=== PATIENT | male | born 1950 | race Hispanic/Latino ===

== ENCOUNTER → 2017-10-20 | Outpatient (CLI) | payer MEDICARE ==
[~2017-10-20] MED LIST: AEC81 PO; ALLO300T2 PO; CLOP75TA32 PO; DAPA10TA PO; EZET10 PO; FENO145T37 PO; INSLAN SQ; METO100T14 PO; METO50TA18 PO; RANI150T7 PO; SIMV20TA6 PO; SITA100T12 PO
== END | disposition home or self-care (01) ==
LOC: SHCH 14:02
PROVIDERS: ATTEND Internal Medicine Cardiovascular Disease
DX: I65.23 Occlusion and stenosis of bilateral carotid arteries (principal); I73.9 Peripheral vascular disease, unspecified; R09.89 Other specified symptoms and signs involving the circulatory and respiratory systems
CPT/HCPCS: 93880; 93925

== ENCOUNTER → 2017-11-08 | Outpatient (CLI) | payer MEDICARE ==
[~2017-11-08] VITALS: Ht 172.7 cm; Wt 108.0 kg
[~2017-11-08] MED LIST changes: +REGADENOSON 0.4 MG/5 ML PF SYG IVP SCH
== END | disposition home or self-care (01) ==
LOC: SHCH 08:22
PROVIDERS: ATTEND Internal Medicine Cardiovascular Disease
DX: I25.10 Atherosclerotic heart disease of native coronary artery without angina pectoris (principal); I25.2 Old myocardial infarction; Z95.5 Presence of coronary angioplasty implant and graft
CPT/HCPCS: 78452; 93017; 96374; A9500 ×2; J2785

== ENCOUNTER → 2018-12-27 | Outpatient (CLI) | payer MEDICARE ==
[~2018-12-27] MED LIST changes: -DAPA10TA PO; -FENO145T37 PO; +FURO40TA7 PO; +HYDR500C2 PO; +ISOS30TA11 PO; +METF-445 PO; -METO100T14 PO; -METO50TA18 PO; -REGADENOSON 0.4 MG/5 ML PF SYG IVP SCH; -SITA100T12 PO; +VALS40TA11 PO
== END | disposition home or self-care (01) ==
LOC: SHCH 14:38
PROVIDERS: ATTEND Internal Medicine Cardiovascular Disease
DX: I87.2 Venous insufficiency (chronic) (peripheral) (principal); R60.9 Edema, unspecified
CPT/HCPCS: 93970

== ENCOUNTER 2019-02-10 19:17 | Emergency (ER) | payer MEDICARE ==
[2019-02-10] MEDS ORDERED: ASPIRIN 325 MG TABLET ONE (19:58)
[2019-02-10 20:12] LABS: CREATININE 1.4 mg/dL (0.5-1.5); INR 1.05 (0.85-1.15); PARTIAL THROMBOPLASTIN TIME 27.5 SEC (26.3-35.5); POTASSIUM 5.3 mmol/L (3.5-5.1)
[2019-02-10 20:19] LABS: B-TYPE NATRIURETIC PEPTIDE 646 pg/mL (0-100)
[2019-02-10 20:23] LABS: BASOPHILS % (AUTO) 0.8 % (0.0-5.0); EOSINOPHILS % (AUTO) 0.6 % (0.0-8.0); LYMPHOCYTES % (AUTO) 25.7 % (21.0-51.0); MEAN CORPUSCULAR HEMOGLOBIN 34.3 pg (27.0-33.0); MEAN CORPUSCULAR VOLUME 103.8 fL (79-99); MONOCYTES % (AUTO) 10.2 % (3.0-13.0); NEUTROPHILS % (AUTO) 62.7 % (40.0-77.0); NUCLEATED RED BLOOD CELLS 0.1 % (0.0-0.19); PLATELET COUNT (AUTO) 120 K/uL (130-400); RED BLOOD CELL COUNT(AUTO) 4.81 MIL/uL (4.50-6.20); RED CELL DISTRIBUTION WIDTH 17.9 % (11.0-15.5); WHITE BLOOD COUNT (AUTO) 4.7 K/uL (4.8-10.8)
[2019-02-10] MEDS ORDERED: ONDANSETRON HCL 4 MG/2 ML VIAL ONE (20:31)
[2019-02-10] MEDS ORDERED: FAMOTIDINE/PF 20 MG/2 ML VIAL IV ONE (20:31)
[2019-02-10] MEDS ORDERED: ACETAMINOPHEN 325 MG TAB ONE (20:32)
[2019-02-10 20:38] LABS: ALBUMIN 3.7 g/dL (3.5-5.0); BILIRUBIN,TOTAL 1.1 mg/dL (0.2-1.0); TOTAL PROTEIN, SERUM 8.3 g/dL (6.0-8.3)
== END 2019-02-10 23:30 | disposition home or self-care (01) ==
LOC: EDH 19:17
DX: R11.2 Nausea with vomiting, unspecified (principal); R10.13 Epigastric pain; I11.0 Hypertensive heart disease with heart failure; I50.9 Heart failure, unspecified; E11.9 Type 2 diabetes mellitus without complications; E78.5 Hyperlipidemia, unspecified; Z87.891 Personal history of nicotine dependence; Z79.899 Other long term (current) drug therapy
CPT/HCPCS: 36415; 71045; 76705; 80053; 82550; 83874; 83880; 84484 ×2; 85025; 85610; 85730; 93005 ×2; 96374; 96375; 99285; J2405; J3490

== ENCOUNTER → 2019-06-22 | Outpatient (CLI) | payer MEDICARE ==
[~2019-06-22] MED LIST changes: -EZET10 PO; +EZET10TA13 PO; +SIMV-43 PO; -SIMV20TA6 PO
== END | disposition home or self-care (01) ==
LOC: SHCH 09:50
PROVIDERS: ATTEND Internal Medicine Cardiovascular Disease
DX: I08.1 Rheumatic disorders of both mitral and tricuspid valves (principal); I25.5 Ischemic cardiomyopathy
CPT/HCPCS: 93306

== ENCOUNTER 2020-01-19 11:52 | Inpatient (IN) | payer MEDICARE ==
[~2020-01-19] VITALS: Ht 162.6 cm; Wt 111.1 kg
[2020-01-19 12:28] LABS: BASOPHILS % (AUTO) 0.2 % (0.0-5.0); EOSINOPHILS % (AUTO) 0.2 % (0.0-8.0); HEMATOCRIT 45.9 % (42-54); LYMPHOCYTES % (AUTO) 4.7 % (21.0-51.0); MEAN CORPUSCULAR HEMOGLOBIN 36.7 pg (27.0-33.0); MEAN CORPUSCULAR HGB CONC 35.3 g/dL (32.0-36.0); MEAN CORPUSCULAR VOLUME 104.1 fL (79-99); MONOCYTES % (AUTO) 4.2 % (3.0-13.0); NEUTROPHILS % (AUTO) 90.4 % (40.0-77.0); PLATELET COUNT (AUTO) 97 K/uL (130-400); RED BLOOD CELL COUNT(AUTO) 4.41 MIL/uL (4.50-6.20); RED CELL DISTRIBUTION WIDTH 13.1 % (11.0-15.5); WHITE BLOOD COUNT (AUTO) 6.4 K/uL (4.8-10.8)
[2020-01-19 12:31] LABS: APPEARANCE,URINE Clear (CLEAR); BILIRUBIN,URINE Small (NEGATIVE); COLOR,URINE Dark Yellow (YELLOW); GLUCOSE, URINE (UA) Negative (NEGATIVE); KETONES,URINE Trace mg/dL (NEGATIVE); LEUKOCYTE ESTERASE ,URINE Trace (NEGATIVE); NITRATE,URINE Negative (NEGATIVE); OCCULT BLOOD,URINE Large (NEGATIVE); PH,URINE 5.5 (5.0-8.0); PROTEIN,URINE >=1000 mg/dL (NEGATIVE)
[2020-01-19 12:41] LABS: POTASSIUM 3.5 mmol/L (3.5-5.1)
[2020-01-19 12:53] LABS: ALBUMIN 3.3 g/dL (3.5-5.0); CREATININE 1.7 mg/dL (0.5-1.5); TOTAL PROTEIN, SERUM 7.6 g/dL (6.0-8.3)
[2020-01-19 12:55] LABS: BACTERIA,URINE Few /HPF (None Seen); SQUAMOUS EPITHELIAL CELL,UR Few /HPF (0-2); WBC,URINE 0-1 /HPF (0-1); YEAST,URINE BUDDING Rare /HPF (None Seen)
[2020-01-19] MEDS ORDERED: POTASSIUM CHLORIDE 20 MEQ ERTAB PO ONE (13:46)
[2020-01-19] MEDS ORDERED: FUROSEMIDE 10 MG/ML 4ML VIAL ONE ×2 (13:46→17:34)
[2020-01-19] MEDS ORDERED: AZITHROMYCIN 500MG+NS 250ML 250 ML IV ONE (16:21)
[2020-01-19] MEDS ORDERED: CEFTRIAXONE SODIUM 1 GM ONE (16:22)
[2020-01-19] MEDS ORDERED: ACETAMINOPHEN 325 MG TAB ONE (16:22)
[2020-01-19 16:33] LABS: ABG HCO3 12.5 mmol/L (21.0-28.0); ABG OXYGEN SATURATION 98.9 % (95.0-99.0); ABG PCO2 25 mmHg (35-48)
[2020-01-19] MEDS ORDERED: METHYLPREDNISOLONE SOD SUCC 125MG/2ML VIAL ONE (16:39)
[2020-01-19] MEDS ORDERED: MORPHINE SULFATE 2 MG/ML 1ML SYG ONE (16:48)
[2020-01-19] MEDS: METHYLPREDNISOLONE SOD SUCC 125MG/2ML VIAL IVP SCH (17:00)
[2020-01-19] MEDS ORDERED: LACTATED RINGERS 1000ML 1,000 ML IV SCH (17:00)
[2020-01-19] MEDS ORDERED: LORAZEPAM 2 MG/ML 1 ML VIAL IVP PRN (17:00)
[2020-01-19] MEDS: FAMOTIDINE/PF 20 MG/2 ML VIAL IV SCH (17:00)
[2020-01-19] MEDS ORDERED: MORPHINE SULFATE 2 MG/ML 1ML SYG IVP PRN (17:00)
[2020-01-19] MEDS ORDERED: LORAZEPAM 2 MG/ML 1 ML VIAL ONE (17:08)
[2020-01-19] MEDS: CEFTRIAXONE SODIUM 1 GM IVP SCH (17:30)
[2020-01-19] MEDS ORDERED: DOXYCYCLINE 100MG+NS 250ML IV SCH (17:30)
[2020-01-19] MEDS ORDERED: NITROGLYCERIN 50 MG/D5% WATER 1 BOT ONE (17:34)
[2020-01-19] MEDS: DOXYCYCLINE 100MG+NS 250ML 250 ML IV SCH (18:00)
[2020-01-19] MEDS ORDERED: PROPOFOL 1000 MG/100 ML 100 ML IV ONE (18:21)
[2020-01-19] MEDS ORDERED: ACETAMINOPHEN 650 MG SUPPOSITORY RC ONE (18:52)
[2020-01-19 19:00] LABS: ABG HCO3 17.6 mmol/L (21.0-28.0); ABG OXYGEN SATURATION 90.5 % (95.0-99.0); ABG PCO2 55 mmHg (35-48)
[2020-01-19] MEDS ORDERED: DEXTROSE 50%-WATER 50 ML DISP.SYRIN IV ONE (20:43)
[2020-01-19] MEDS ORDERED: SODIUM BICARB 50MEQ 50ML VIAL ONE ×2 (20:43→22:19)
[2020-01-19] MEDS ORDERED: FUROSEMIDE 10 MG/ML 4ML VIAL IV SCH (21:00)
[2020-01-19 21:16] LABS: ABG BASE EXCESS -10.8 mmol/L (-2.0-3.0); ABG OXYGEN SATURATION 91.7 % (95.0-99.0); ABG PCO2 59 mmHg (35-48)
[2020-01-19] MEDS ORDERED: FENTANYL 1000MCG+NS 100ML 100 ML ONE (21:54)
[2020-01-19] MEDS ORDERED: NOREPINEPHRINE 4MG/NS 250ML 250 ML IV ONE (22:19)
[2020-01-19] MEDS ORDERED: ONDANSETRON HCL 4 MG/2 ML VIAL IVP PRN ×2 (22:30)
[2020-01-19] MEDS ORDERED: HYDRALAZINE HCL 20 MG/ML VIAL IV PRN ×2 (22:30)
[2020-01-19] MEDS ORDERED: DEXTROSE 50%-WATER 50 ML DISP.SYRIN IV PRN ×2 (22:30)
[2020-01-19] MEDS ORDERED: GLUCAGON 1MG KIT 1 MG ML IM PRN ×2 (22:30)
[2020-01-19] MEDS ORDERED: ACETAMINOPHEN 325 MG SUPPOSITORY RC PRN ×2 (22:30)
[2020-01-19] MEDS ORDERED: MIDAZOLAM HCL 50 MG in SODIUM CHLORIDE 0.9% 50 ML IV SCH (22:45)
[2020-01-19] MEDS ORDERED: NOREPINEPHRINE 4MG/NS 250ML IV SCH (22:45)
[2020-01-19 23:00] LABS: BASOPHILS % (AUTO) 0.2 % (0.0-5.0); EOSINOPHILS % (AUTO) 0.2 % (0.0-8.0); HEMATOCRIT 58.3 % (42-54); LYMPHOCYTES % (AUTO) 7.7 % (21.0-51.0); MEAN CORPUSCULAR HEMOGLOBIN 37.1 pg (27.0-33.0); MEAN CORPUSCULAR HGB CONC 32.9 g/dL (32.0-36.0); MEAN CORPUSCULAR VOLUME 112.5 fL (79-99); MONOCYTES % (AUTO) 2.9 % (3.0-13.0); NEUTROPHILS % (AUTO) 87.8 % (40.0-77.0); NUCLEATED RED BLOOD CELLS 0.2 % (0.0-0.19); PLATELET COUNT (AUTO) 55 K/uL (130-400); RED BLOOD CELL COUNT(AUTO) 5.18 MIL/uL (4.50-6.20); RED CELL DISTRIBUTION WIDTH 13.8 % (11.0-15.5); WHITE BLOOD COUNT (AUTO) 13.3 K/uL (4.8-10.8)
[2020-01-19] MEDS: SODIUM BICARB 8.4% 50ML SYRINGE IVP SCH (23:00)
[2020-01-19] MEDS ORDERED: DEXMEDETOMIDINE HCL 200 MCG in SODIUM CHLORIDE 0.9% 50 ML IV SCH (23:00)
[2020-01-19 23:04] LABS: CREATININE 3.3 mg/dL (0.5-1.5); POTASSIUM 4.4 mmol/L (3.5-5.1)
[2020-01-19 23:16] LABS: ALBUMIN 2.9 g/dL (3.5-5.0); BILIRUBIN,TOTAL 2.8 mg/dL (0.2-1.0); CRP QUANTITATIVE 130.8 mg/L (0.00-9.0); MAGNESIUM 2.7 mg/dL (1.80-2.40); TOTAL PROTEIN, SERUM 7.8 g/dL (6.0-8.3)
[2020-01-20] VITALS (57 sets, daily range): BP systolic 68–172; BP diastolic 45–99
[2020-01-20 00:46] LABS: PLATELET MORPHOLOGY COMMENT DECREASED
[2020-01-20] MEDS: METHYLPREDNISOLONE SOD SUCC 125MG/2ML VIAL IVP SCH ×3 (01:00→18:23)
[2020-01-20] MEDS ORDERED: METHYLPREDNISOLONE SOD SUCC 125MG/2ML VIAL ONE (01:15)
[2020-01-20] MEDS ORDERED: FUROSEMIDE 10 MG/ML 4ML VIAL ONE (01:15)
[2020-01-20] MEDS ORDERED: POTASSIUM CHLORIDE 20 MEQ ERTAB PO PRN ×3 (01:30→06:15)
[2020-01-20] MEDS ORDERED: POTASSIUM CHLORIDE 10% ELIXIR 20 MEQ/15 ML UDCUP PO PRN ×3 (01:30→06:15)
[2020-01-20] MEDS ORDERED: POTASSIUM CHLORIDE 20MEQ/100ML 100 ML IV PRN ×3 (01:30→06:15)
[2020-01-20] MEDS ORDERED: LIDOCAINE HCL-MPF 1% 2ML VIAL IJ PRN ×3 (01:30→06:15)
--- NOTE | 2020-01-20 02:15 | NUR ---
Patient transferred to ICU. ER nurse given report to ICU nurse. Respiratory Therapist arrived with ER nurse. VSS. Will continue to monitor.
[2020-01-20] MEDS: CEFTRIAXONE SODIUM 1 GM IVP SCH (05:15)
[2020-01-20] MEDS: DOXYCYCLINE 100MG+NS 250ML 250 ML IV SCH ×4 (06:00→22:28)
[2020-01-20] MEDS ORDERED: MAGNESIUM 2GM PREMIX 50ML 50 ML IV SCH (06:15)
[2020-01-20] MEDS: INSULIN HUMULIN R 100 UNIT/ML 3ML SQ SCH ×4 (06:45→21:00)
[2020-01-20 06:56] LABS: BASOPHILS % (AUTO) 0.4 % (0.0-5.0); EOSINOPHILS % (AUTO) 0.4 % (0.0-8.0); HEMATOCRIT 54.8 % (42-54); LYMPHOCYTES % (AUTO) 1.6 % (21.0-51.0); MEAN CORPUSCULAR HEMOGLOBIN 36.2 pg (27.0-33.0); MEAN CORPUSCULAR HGB CONC 33.4 g/dL (32.0-36.0); MEAN CORPUSCULAR VOLUME 108.3 fL (79-99); NEUTROPHILS % (AUTO) 87.8 % (40.0-77.0); NUCLEATED RED BLOOD CELLS 0.2 % (0.0-0.19); PLATELET COUNT (AUTO) 47 K/uL (130-400); RED BLOOD CELL COUNT(AUTO) 5.06 MIL/uL (4.50-6.20); RED CELL DISTRIBUTION WIDTH 14.1 % (11.0-15.5); WHITE BLOOD COUNT (AUTO) 18.2 K/uL (4.8-10.8)
[2020-01-20 07:24] LABS: B-TYPE NATRIURETIC PEPTIDE 1750 pg/mL (0-100)
[2020-01-20 07:26] LABS: ALBUMIN 2.8 g/dL (3.5-5.0); BILIRUBIN,TOTAL 2.7 mg/dL (0.2-1.0); CREATININE 3.7 mg/dL (0.5-1.5); CRP QUANTITATIVE 162.8 mg/L (0.00-9.0); POTASSIUM 3.9 mmol/L (3.5-5.1); TOTAL PROTEIN, SERUM 6.9 g/dL (6.0-8.3)
[2020-01-20] MEDS ORDERED: SODIUM CHLORIDE 0.9% 1000ML 1,000 ML IV ONE (07:54)
[2020-01-20] MEDS ORDERED: MAGNESIUM 4GM PREMIX 100ML 100 ML IV SCH (07:56)
[2020-01-20] MEDS ORDERED: AMIODARONE HCL 150 MG in DEXTROSE 5%-WATER 100 ML IV SCH (07:56)
[2020-01-20] MEDS ORDERED: AMIODARONE HCL 450 MG in DEXTROSE 5%-WATER 250 ML IV SCH (07:56)
[2020-01-20] MEDS ORDERED: AMIODARONE HCL 360 MG in DEXTROSE 5%-WATER 200 ML IV SCH (08:15)
[2020-01-20] MEDS ORDERED: VANCOMYCIN PROTOCOL PER PHARMACY IV SCH (08:30)
[2020-01-20] MEDS ORDERED: NOREPINEPHRINE BITARTRATE 1 MG/1 ML ML IV ONE (08:43)
[2020-01-20] MEDS ORDERED: COMPOUND IV REFRIGERATED 1 EACH IVSOLN MISC PRN (08:45)
[2020-01-20] MEDS ORDERED: ENOXAPARIN SODIUM 60 MG/0.6 ML SQ SCH (09:00)
[2020-01-20] MEDS ORDERED: SODIUM BICARB 50MEQ 50ML VIAL ONE (09:09)
[2020-01-20] MEDS: SODIUM BICARB 50MEQ 50ML VIAL IV SCH ×2 (09:15→10:43)
[2020-01-20] MEDS: CALCIUM CHLORIDE 100 MG/ML 10 ML SYG IVP SCH ×2 (09:17→10:43)
[2020-01-20] MEDS: VASOPRESSIN 20 UNITS in SODIUM CHLORIDE 0.9% 100 ML IV SCH (09:19)
[2020-01-20 10:02] LABS: ABG HCO3 20.2 mmol/L (21.0-28.0); ABG OXYGEN SATURATION 99.5 % (95.0-99.0); ABG PCO2 38 mmHg (35-48)
[2020-01-20] MEDS: FENTANYL 1000MCG+NS 100ML 100 ML IV SCH ×3 (10:46→23:50)
[2020-01-20] MEDS: VANCOMYCIN 1.25 GM in SODIUM CHLORIDE 0.9% 250 ML IV SCH (10:47)
[2020-01-20] MEDS: MEROPENEM 1 GM VIAL IVP SCH ×3 (10:48→23:52)
[2020-01-20] MEDS: FAMOTIDINE/PF 20 MG/2 ML VIAL IV SCH (10:48)
--- NOTE | 2020-01-20 12:00 | NUR ---
INITIAL SW spoke with patient's daughter, Nury Frank, [phone]. Patient lives with spouse and daughter. No home health but does have PHC with [facility] 32 hours a week. DME: BPM, glucometer (uses insulin). Patient needs help with ADL's and does not drive. Family assists with transportation. PCP is Dr. Eugenio Muñiz. Pharmacy is [facility] located on [address] [facility] [address] [facility] in [place]. DCP is home. Addendum: 01/20/20 at 1203 by KYLEIGH DREW SS Amended: Links added.
[2020-01-20] MEDS ORDERED: DOBUTAMINE 250MG/D5 250ML 250 ML IV SCH (15:00)
[2020-01-20] MEDS: PROPOFOL 1000 MG/100 ML 100 ML IV SCH (16:01)
[2020-01-20] MEDS: SODIUM BICARB 8.4% 50ML SYRINGE IVP SCH (23:49)
[2020-01-21] VITALS (69 sets, daily range): BP systolic 75–134; BP diastolic 49–85
[2020-01-21] MEDS: METHYLPREDNISOLONE SOD SUCC 125MG/2ML VIAL IVP SCH (01:00)
[2020-01-21] MEDS ORDERED: NOREPINEPHRINE BITARTRATE 1 MG/1 ML ML IV ONE (01:45)
[2020-01-21] MEDS ORDERED: SODIUM CHLORIDE 0.9% 250 ML IV ONE (01:46)
[2020-01-21] MEDS ORDERED: VASOPRESSIN 20 UNITS/ML 1ML VIAL ONE (02:40)
[2020-01-21 04:19] LABS: BASOPHILS % (AUTO) 0.6 % (0.0-5.0); HEMATOCRIT 51.7 % (42-54); LYMPHOCYTES % (AUTO) 0.8 % (21.0-51.0); MEAN CORPUSCULAR HGB CONC 33.7 g/dL (32.0-36.0); MONOCYTES % (AUTO) 1.6 % (3.0-13.0); NEUTROPHILS % (AUTO) 92.6 % (40.0-77.0); NUCLEATED RED BLOOD CELLS 0.4 % (0.0-0.19); PLATELET COUNT (AUTO) 63 K/uL (130-400); RED CELL DISTRIBUTION WIDTH 14.2 % (11.0-15.5); WHITE BLOOD COUNT (AUTO) 22.5 K/uL (4.8-10.8)
[2020-01-21 04:53] LABS: ALBUMIN 2.6 g/dL (3.5-5.0); BILIRUBIN,TOTAL 4.4 mg/dL (0.2-1.0); CREATININE 5.5 mg/dL (0.5-1.5); POTASSIUM 5.2 mmol/L (3.5-5.1); TOTAL PROTEIN, SERUM 6.3 g/dL (6.0-8.3)
[2020-01-21 04:57] LABS: CRP QUANTITATIVE 238.8 mg/L (0.00-9.0)
[2020-01-21] MEDS: DOXYCYCLINE 100MG+NS 250ML 250 ML IV SCH ×2 (05:57→16:35)
[2020-01-21] MEDS: INSULIN HUMULIN R 100 UNIT/ML 3ML SQ SCH ×4 (07:30→20:59)
[2020-01-21 08:17] LABS: INR 2.01 (0.85-1.15); PARTIAL THROMBOPLASTIN TIME 48.5 SEC (26.3-35.5); PROTHROMBIN TIME 21.1 SEC (9.6-11.6)
--- NOTE | 2020-01-21 08:53 | NUR ---
CHART CHECK COMPLETED. Pt IS A 69 Y.O. MALE ADMITTED SECONDARY TO RESPIRATORY FAILURE. Pt HAS A PAST MEDICAL HISTORY SIGNIFICANT FOR HYPERTENSION, DIABETES MELLITUS, [place] 1997 AND 2005, ISCHEMIC CARDIOMYOPATHY, AICD PLACEMENT. Pt INTUBATED ON 01/19/2020 AND ON MECHANICAL VENTILATOR AT THIS TIME. RECOMMEND SKILLED SPEECH/SWALLOW EVALUATION 24 HOURS POST EXTUBATION. Addendum: 01/21/20 at 0856 by DOMINIC YANG [facility] Amended: Links added.
[2020-01-21] MEDS ORDERED: FUROSEMIDE 10 MG/ML 2ML VIAL IVP SCH (09:00)
[2020-01-21] MEDS: MEROPENEM 1 GM VIAL IVP SCH ×2 (09:08→16:35)
[2020-01-21] MEDS: METHYLPREDNISOLONE SOD SUCC 40MG/ML 1ML IVP SCH ×2 (09:08→16:35)
[2020-01-21] MEDS: FAMOTIDINE/PF 20 MG/2 ML VIAL IV SCH (09:08)
[2020-01-21] MEDS: NOREPINEPHRINE BITARTRATE 32 MG in SODIUM CHLORIDE 0.9% 250 ML IV SCH (09:11)
[2020-01-21 09:17] LABS: ABG BASE EXCESS -8.5 mmol/L (-2.0-3.0); ABG HCO3 17.7 mmol/L (21.0-28.0); ABG OXYGEN SATURATION 97.5 % (95.0-99.0); ABG PCO2 39 mmHg (35-48)
[2020-01-21 09:20] LABS: ABG BASE EXCESS -8.8 mmol/L (-2.0-3.0); ABG HCO3 17.2 mmol/L (21.0-28.0); ABG OXYGEN SATURATION 97.5 % (95.0-99.0); ABG PCO2 38 mmHg (35-48)
[2020-01-21] MEDS ORDERED: REMDESIVIR (INVESTIGATIONAL) 200 MG in SODIUM CHLORIDE 0.9% 250 ML IV ONE (11:15)
--- NOTE | 2020-01-21 11:30 | NUR ---
DR. ROGERS IN TO SEE PT. PLAN OF CARE DISCUSSED. NEW ORDERS RECEIVED AND NOTED.
--- NOTE | 2020-01-21 12:00 | NUR ---
MALISSA FRITZ WITH DR. BRUCE NOTIFIED OF CONSULT.
--- NOTE | 2020-01-21 12:21 | NUR ---
RD NOTIFICATION - TRICKLE TUBE FEEDINGS RECOMMEND VITAL HIGH PROTEIN AT 15MLS/HR (360KCAL, 32GM PROTEIN) RECOMMEND FLUSHES AT 100ML Q6HRS. PROPOFOL IN PLACE @5MLS/HR (132KCAL/DAY). TUBE FEEDING RECOMMENDATIONS FAXED TO EXT 4389. RN/TUGBOAT DISPATCHER NOTIFIED. NUTRITION NOTE: Pt admitted with Respiratory Failure, CHF. Positive COVID-19 infection. Intubated, Sedated, OGT in place. Prone positioning. WBC 22.5, GFR 11, Cr 5.5, BUN 72, K 5.2, BG 152, AST 5853, ALT 2977, T. bili 4.4 Obesity Class II (BMI 38.4). Nephrology consulted. RD to continue to monitor. Please notify as additional nutrition concerns arise. Thank you.
--- NOTE | 2020-01-21 12:30 | NUR ---
RECEIVED CALL FORM RADIOLOGY DEPARTMENT, PER RADIOLOGIST ORDERED US ABDOMEN WILL NOT BE PERFORMED UNTIL PT IS COVID NEGATIVE. DR. ROGERS NOTIFIED.
--- NOTE | 2020-01-21 14:00 | NUR ---
PT PLACED PRONE ORDERED. TOLERATED WELL. O2 SAT 95%, SBP 100/62. FAMILY CALLED AND UPDATED IN PT CONDITION.
--- NOTE | 2020-01-21 14:15 | NUR ---
DR. BRUCE IN TO SEE PT. PLAN OF CARE DISCUSSED. NOTIFIED FAMILY PT NEEDS HEMODIALYSIS BUT IS HIGH RISK AND NOT STABLE AT THIS TIME. FAMILY AGREES ON HEMODIALYSIS IF PT BECOMES STABLE.
[2020-01-21] MEDS: FENTANYL 2500MCG+NS 250ML 250 ML IV PRN (15:01)
[2020-01-21] MEDS: PROPOFOL 1000 MG/100 ML 100 ML IV SCH (15:02)
[2020-01-21] MEDS: SODIUM BICARB 8.4% 50ML SYRINGE IVP SCH (22:59)
[2020-01-22] VITALS (43 sets, daily range): BP systolic 102–134; BP diastolic 65–92
[2020-01-22] MEDS: METHYLPREDNISOLONE SOD SUCC 40MG/ML 1ML IVP SCH ×2 (02:01→10:04)
[2020-01-22] MEDS: MEROPENEM 1 GM VIAL IVP SCH ×2 (02:01→10:04)
[2020-01-22 04:31] LABS: BASOPHILS % (AUTO) 0.4 % (0.0-5.0); EOSINOPHILS % (AUTO) 0.1 % (0.0-8.0); HEMATOCRIT 47.2 % (42-54); LYMPHOCYTES % (AUTO) 0.8 % (21.0-51.0); MEAN CORPUSCULAR HEMOGLOBIN 36.1 pg (27.0-33.0); MEAN CORPUSCULAR HGB CONC 33.7 g/dL (32.0-36.0); MONOCYTES % (AUTO) 2.2 % (3.0-13.0); NEUTROPHILS % (AUTO) 95.7 % (40.0-77.0); NUCLEATED RED BLOOD CELLS 0.6 % (0.0-0.19); PLATELET COUNT (AUTO) 79 K/uL (130-400); RED BLOOD CELL COUNT(AUTO) 4.41 MIL/uL (4.50-6.20); RED CELL DISTRIBUTION WIDTH 14.1 % (11.0-15.5); WHITE BLOOD COUNT (AUTO) 19.2 K/uL (4.8-10.8)
[2020-01-22 04:59] LABS: ALBUMIN 2.3 g/dL (3.5-5.0); BILIRUBIN,TOTAL 5.3 mg/dL (0.2-1.0); CREATININE 7.4 mg/dL (0.5-1.5); PHOSPHORUS 8.6 mg/dL (2.5-4.9); POTASSIUM 5.5 mmol/L (3.5-5.1); TOTAL PROTEIN, SERUM 5.6 g/dL (6.0-8.3)
[2020-01-22 05:26] LABS: ABG BASE EXCESS -8.4 mmol/L (-2.0-3.0); ABG HCO3 17.2 mmol/L (21.0-28.0); ABG OXYGEN SATURATION 96.5 % (95.0-99.0); ABG PCO2 36 mmHg (35-48)
[2020-01-22] MEDS: DOXYCYCLINE 100MG+NS 250ML 250 ML IV SCH ×2 (05:35→17:34)
[2020-01-22 06:07] LABS: CRP QUANTITATIVE 157.9 mg/L (0.00-9.0)
[2020-01-22] MEDS: INSULIN HUMULIN R 100 UNIT/ML 3ML SQ SCH ×4 (07:30→20:16)
[2020-01-22] MEDS: VANCOMYCIN 1.25 GM in SODIUM CHLORIDE 0.9% 250 ML IV SCH (10:04)
[2020-01-22] MEDS: FAMOTIDINE/PF 20 MG/2 ML VIAL IV SCH (10:04)
[2020-01-22] MEDS ORDERED: REMDESIVIR (INVESTIGATIONAL) 100 MG in SODIUM CHLORIDE 0.9% 250 ML IV SCH (11:15)
--- NOTE | 2020-01-22 12:54 | NUR ---
PHONE CALL UPDATED PATIENTS ROMULO ON PATIENT STATUS AND GAVE OPPORTUNITY TO ASK QUESTIONS.
[2020-01-22] MEDS: FENTANYL 2500MCG+NS 250ML 250 ML IV PRN (13:57)
[2020-01-22] MEDS: HYDROCORTISONE SOD SUCCINATE 100 MG/2 ML VIAL IV SCH (17:34)
[2020-01-22] MEDS: SODIUM BICARB 8.4% 50ML SYRINGE IVP SCH (23:18)
[2020-01-23] VITALS (75 sets, daily range): BP systolic 65–147; BP diastolic 45–92
[2020-01-23] MEDS: DOXYCYCLINE 100MG+NS 250ML 250 ML IV SCH ×2 (05:10→17:03)
[2020-01-23] MEDS: HYDROCORTISONE SOD SUCCINATE 100 MG/2 ML VIAL IV SCH ×4 (05:10→17:03)
[2020-01-23 05:47] LABS: HEMATOCRIT 50.4 % (42-54); MEAN CORPUSCULAR HEMOGLOBIN 36.1 pg (27.0-33.0); MEAN CORPUSCULAR HGB CONC 34.1 g/dL (32.0-36.0); MEAN CORPUSCULAR VOLUME 105.9 fL (79-99); NUCLEATED RED BLOOD CELLS 0.7 % (0.0-0.19); PLATELET COUNT (AUTO) 76 K/uL (130-400); RED BLOOD CELL COUNT(AUTO) 4.76 MIL/uL (4.50-6.20); WHITE BLOOD COUNT (AUTO) 18.8 K/uL (4.8-10.8)
[2020-01-23 05:55] LABS: LYMPHOCYTES % (MANUAL) 10 % (22-44); MAN.DIFF COMMENT-IMPRESSION MANUAL DIFFERENTIAL; MONOCYTES % (MANUAL) 6 % (2-9); PLATELET MORPHOLOGY COMMENT DECREASED; SEGMENTED NEUTROPHILS % 84 % (40-70)
[2020-01-23 06:12] LABS: ALBUMIN 2.5 g/dL (3.5-5.0); BILIRUBIN,TOTAL 5.7 mg/dL (0.2-1.0)
[2020-01-23] MEDS ORDERED: SODIUM BICARB 50MEQ 50ML VIAL IV SCH (07:30)
[2020-01-23] MEDS ORDERED: SODIUM POLYSTYRENE SULFONATE 15 GM/60 ML ML PO SCH ×3 (07:30→19:45)
[2020-01-23] MEDS ORDERED: INSULIN HUMULIN R 100 UNIT/ML 3ML IV SCH (07:30)
[2020-01-23] MEDS ORDERED: DEXTROSE 50%-WATER 25 GM/50 ML VIAL IV SCH (07:30)
[2020-01-23] MEDS: INSULIN HUMULIN R 100 UNIT/ML 3ML SQ SCH ×4 (07:30→20:53)
[2020-01-23] MEDS: CALCIUM GLUCONATE 1 GM/10 ML VIAL IV SCH ×2 (07:31→08:04)
[2020-01-23] MEDS: MEROPENEM 1 GM VIAL IVP SCH (08:29)
[2020-01-23] MEDS: FAMOTIDINE/PF 20 MG/2 ML VIAL IV SCH (08:29)
--- NOTE | 2020-01-23 09:19 | NUR ---
critical potassium called Dr. Sung for critical K+ 6.0 received orders for hyperkalemia cocktail. Called Dr. Dowd he is aware and states patients condition is terminal and he has spoke with Dr. Phillips already regarding this case nothing more Dr. Dowd can do as per Dr. Dowd.
[2020-01-23 10:41] LABS: ABG BASE EXCESS -7.7 mmol/L (-2.0-3.0); ABG HCO3 17.7 mmol/L (21.0-28.0); ABG OXYGEN SATURATION 92.6 % (95.0-99.0); ABG PCO2 37 mmHg (35-48)
[2020-01-23] MEDS: NOREPINEPHRINE BITARTRATE 32 MG in SODIUM CHLORIDE 0.9% 250 ML IV SCH (14:44)
[2020-01-23 17:58] LABS: POTASSIUM 5.9 mmol/L (3.5-5.1)
[2020-01-23] MEDS ORDERED: SODIUM POLYSTYRENE SULFONATE 15 GM/60 ML ML ONE (18:14)
[2020-01-23] MEDS: SODIUM BICARB 8.4% 50ML SYRINGE IVP SCH (23:00)
[2020-01-24] VITALS (54 sets, daily range): BP systolic 89–132; BP diastolic 42–82
[2020-01-24] MEDS: HYDROCORTISONE SOD SUCCINATE 100 MG/2 ML VIAL IV SCH ×4 (01:50→17:15)
[2020-01-24 04:32] LABS: BASOPHILS % (AUTO) 0.2 % (0.0-5.0); EOSINOPHILS % (AUTO) 0.2 % (0.0-8.0); HEMATOCRIT 50.7 % (42-54); LYMPHOCYTES % (AUTO) 2.6 % (21.0-51.0); MEAN CORPUSCULAR HEMOGLOBIN 36.5 pg (27.0-33.0); MEAN CORPUSCULAR HGB CONC 34.5 g/dL (32.0-36.0); MEAN CORPUSCULAR VOLUME 105.8 fL (79-99); MONOCYTES % (AUTO) 5.6 % (3.0-13.0); NEUTROPHILS % (AUTO) 90.8 % (40.0-77.0); NUCLEATED RED BLOOD CELLS 0.6 % (0.0-0.19); PLATELET COUNT (AUTO) 67 K/uL (130-400); RED BLOOD CELL COUNT(AUTO) 4.79 MIL/uL (4.50-6.20); RED CELL DISTRIBUTION WIDTH 14.1 % (11.0-15.5); WHITE BLOOD COUNT (AUTO) 12.5 K/uL (4.8-10.8)
[2020-01-24 05:02] LABS: ALBUMIN 2.2 g/dL (3.5-5.0); CRP QUANTITATIVE 98.7 mg/L (0.00-9.0); POTASSIUM 5.1 mmol/L (3.5-5.1); TOTAL PROTEIN, SERUM 5.7 g/dL (6.0-8.3)
[2020-01-24 05:16] LABS: CREATININE 10.7 mg/dL (0.5-1.5)
[2020-01-24] MEDS: DOXYCYCLINE 100MG+NS 250ML 250 ML IV SCH (06:16)
[2020-01-24] MEDS: INSULIN HUMULIN R 100 UNIT/ML 3ML SQ SCH ×4 (07:15→20:32)
[2020-01-24 07:36] LABS: ABG BASE EXCESS -8.4 mmol/L (-2.0-3.0); ABG HCO3 17.3 mmol/L (21.0-28.0); ABG OXYGEN SATURATION 90.3 % (95.0-99.0); ABG PCO2 37 mmHg (35-48)
[2020-01-24 08:16] LABS: INR 1.5 (0.85-1.15); PARTIAL THROMBOPLASTIN TIME 37.1 SEC (26.3-35.5); PROTHROMBIN TIME 15.9 SEC (9.6-11.6)
[2020-01-24] MEDS: FAMOTIDINE/PF 20 MG/2 ML VIAL IV SCH (08:39)
[2020-01-24] MEDS: MEROPENEM 1 GM VIAL IVP SCH (08:39)
[2020-01-24] MEDS: VANCOMYCIN 1.25 GM in SODIUM CHLORIDE 0.9% 250 ML IV SCH (08:41)
[2020-01-24] MEDS: DOXYCYCLINE HYCLATE 100 MG TABLET PO SCH ×2 (12:07→20:32)
--- NOTE | 2020-01-24 14:57 | NUR ---
RD UPDATE Pt continues with Trickle feedings. Bolus contraindicated. Please notify for feeding pump needs (Ext. [phone]). Worsening MAXIMO. Improving LFTs. LBM 01/20/20. Recommend continuous trickle feedings. RD to continue to monitor. Please notify as additional nutrition concerns arise. Thank you.
[2020-01-25] VITALS (68 sets, daily range): BP systolic 74–143; BP diastolic 39–94
[2020-01-25] MEDS: SODIUM BICARB 8.4% 50ML SYRINGE IVP SCH (00:38)
[2020-01-25] MEDS: HYDROCORTISONE SOD SUCCINATE 100 MG/2 ML VIAL IV SCH ×4 (00:38→17:17)
[2020-01-25 04:37] LABS: BASOPHILS % (AUTO) 0.3 % (0.0-5.0); HEMATOCRIT 49.4 % (42-54); MEAN CORPUSCULAR HEMOGLOBIN 35.9 pg (27.0-33.0); MEAN CORPUSCULAR HGB CONC 34.8 g/dL (32.0-36.0); MEAN CORPUSCULAR VOLUME 103.1 fL (79-99); MONOCYTES % (AUTO) 6.8 % (3.0-13.0); NEUTROPHILS % (AUTO) 90.1 % (40.0-77.0); NUCLEATED RED BLOOD CELLS 0.4 % (0.0-0.19); PLATELET COUNT (AUTO) 61 K/uL (130-400); RED BLOOD CELL COUNT(AUTO) 4.79 MIL/uL (4.50-6.20); RED CELL DISTRIBUTION WIDTH 13.9 % (11.0-15.5); WHITE BLOOD COUNT (AUTO) 10.9 K/uL (4.8-10.8)
[2020-01-25 06:10] LABS: ALBUMIN 1.9 g/dL (3.5-5.0); BILIRUBIN,TOTAL 6.3 mg/dL (0.2-1.0); CRP QUANTITATIVE 65.3 mg/L (0.00-9.0); POTASSIUM 4.7 mmol/L (3.5-5.1); TOTAL PROTEIN, SERUM 5.2 g/dL (6.0-8.3)
[2020-01-25 06:32] LABS: CREATININE 11.4 mg/dL (0.5-1.5)
[2020-01-25] MEDS: INSULIN HUMULIN R 100 UNIT/ML 3ML SQ SCH ×4 (06:46→21:42)
[2020-01-25] MEDS: FAMOTIDINE/PF 20 MG/2 ML VIAL IV SCH (09:03)
[2020-01-25] MEDS: DOXYCYCLINE HYCLATE 100 MG TABLET PO SCH ×2 (09:03→19:48)
[2020-01-25] MEDS: MEROPENEM 1 GM VIAL IVP SCH (09:03)
[2020-01-25] MEDS: PROPOFOL 1000 MG/100 ML 100 ML IV SCH ×2 (09:04→19:46)
[2020-01-25 10:14] LABS: ABG BASE EXCESS -7.1 mmol/L (-2.0-3.0); ABG HCO3 18.9 mmol/L (21.0-28.0); ABG OXYGEN SATURATION 94.5 % (95.0-99.0); ABG PCO2 40 mmHg (35-48)
[2020-01-25] MEDS: ENOXAPARIN SODIUM 60 MG/0.6 ML SQ SCH (12:33)
[2020-01-25] MEDS: FENTANYL 2500MCG+NS 250ML 250 ML IV PRN (19:47)
[2020-01-26] VITALS (59 sets, daily range): BP systolic 68–156; BP diastolic 25–71
[2020-01-26] MEDS: HYDROCORTISONE SOD SUCCINATE 100 MG/2 ML VIAL IV SCH ×5 (00:53→23:35)
[2020-01-26 04:38] LABS: ABG BASE EXCESS -8.9 mmol/L (-2.0-3.0); ABG HCO3 16.6 mmol/L (21.0-28.0); ABG OXYGEN SATURATION 95.1 % (95.0-99.0); ABG PCO2 35 mmHg (35-48)
[2020-01-26] MEDS: PROPOFOL 1000 MG/100 ML 100 ML IV SCH ×2 (04:41→17:14)
[2020-01-26] MEDS: INSULIN HUMULIN R 100 UNIT/ML 3ML SQ SCH ×4 (05:30→23:53)
[2020-01-26 06:45] LABS: HEMATOCRIT 52.3 % (42-54); MEAN CORPUSCULAR HEMOGLOBIN 36.2 pg (27.0-33.0); MEAN CORPUSCULAR HGB CONC 35.6 g/dL (32.0-36.0); MEAN CORPUSCULAR VOLUME 101.8 fL (79-99); NUCLEATED RED BLOOD CELLS 0.5 % (0.0-0.19); PLATELET COUNT (AUTO) 92 K/uL (130-400); RED BLOOD CELL COUNT(AUTO) 5.14 MIL/uL (4.50-6.20); RED CELL DISTRIBUTION WIDTH 13.9 % (11.0-15.5)
[2020-01-26 07:45] LABS: BAND NEUTROPHILS % (MANUAL) 2 % (0-2); MONOCYTES % (MANUAL) 5 % (2-9); SEGMENTED NEUTROPHILS % 93 % (40-70)
[2020-01-26 07:46] LABS: MAN.DIFF COMMENT-IMPRESSION MANUAL DIFFERENTIAL; PLATELET MORPHOLOGY COMMENT DECREASED
[2020-01-26 08:08] LABS: CRP QUANTITATIVE 47.3 mg/L (0.00-9.0); TOTAL PROTEIN, SERUM 5.6 g/dL (6.0-8.3)
[2020-01-26] MEDS: DOXYCYCLINE HYCLATE 100 MG TABLET PO SCH ×2 (08:49→20:01)
[2020-01-26] MEDS: FAMOTIDINE/PF 20 MG/2 ML VIAL IV SCH (08:49)
[2020-01-26] MEDS: ENOXAPARIN SODIUM 60 MG/0.6 ML SQ SCH (08:51)
[2020-01-26] MEDS: MEROPENEM 1 GM VIAL IVP SCH (08:51)
[2020-01-26] MEDS: VANCOMYCIN 1.25 GM in SODIUM CHLORIDE 0.9% 250 ML IV SCH (09:00)
[2020-01-26 09:23] LABS: CREATININE 12.4 mg/dL (0.5-1.5)
[2020-01-26] MEDS: VASOPRESSIN 20 UNITS in SODIUM CHLORIDE 0.9% 100 ML IV SCH ×2 (14:01→23:56)
[2020-01-26] MEDS: FENTANYL 2500MCG+NS 250ML 250 ML IV PRN (18:47)
[2020-01-26] MEDS ORDERED: SODIUM CHLORIDE 0.9% 250 ML IV ONE (21:35)
[2020-01-27] VITALS (44 sets, daily range): BP systolic 75–130; BP diastolic 40–81
[2020-01-27] MEDS: HYDROCORTISONE SOD SUCCINATE 100 MG/2 ML VIAL IV SCH ×4 (05:20→23:14)
[2020-01-27 05:30] LABS: HEMATOCRIT 44.5 % (42-54); MEAN CORPUSCULAR HEMOGLOBIN 36.4 pg (27.0-33.0); MEAN CORPUSCULAR HGB CONC 36.2 g/dL (32.0-36.0); MEAN CORPUSCULAR VOLUME 100.7 fL (79-99); NUCLEATED RED BLOOD CELLS 0.5 % (0.0-0.19); PLATELET COUNT (AUTO) 71 K/uL (130-400); RED BLOOD CELL COUNT(AUTO) 4.42 MIL/uL (4.50-6.20); RED CELL DISTRIBUTION WIDTH 13.6 % (11.0-15.5); WHITE BLOOD COUNT (AUTO) 9.9 K/uL (4.8-10.8)
[2020-01-27] MEDS: INSULIN HUMULIN R 100 UNIT/ML 3ML SQ SCH ×4 (05:34→23:37)
[2020-01-27 06:20] LABS: ALBUMIN 1.7 g/dL (3.5-5.0); BILIRUBIN,TOTAL 6.3 mg/dL (0.2-1.0); POTASSIUM 4.8 mmol/L (3.5-5.1); TOTAL PROTEIN, SERUM 5.2 g/dL (6.0-8.3)
[2020-01-27 06:30] LABS: CREATININE 13.2 mg/dL (0.5-1.5)
[2020-01-27 07:48] LABS: MAN.DIFF COMMENT-IMPRESSION MANUAL DIFFERENTIAL; MONOCYTES % (MANUAL) 5 % (2-9); PLATELET MORPHOLOGY COMMENT DECREASED; SEGMENTED NEUTROPHILS % 95 % (40-70)
[2020-01-27] MEDS ORDERED: HEPARIN SODIUM 5000UNIT/ML 1ML VIAL SQ SCH (08:30)
[2020-01-27] MEDS: VASOPRESSIN 20 UNITS in SODIUM CHLORIDE 0.9% 100 ML IV SCH (09:00)
[2020-01-27] MEDS: MEROPENEM 1 GM VIAL IVP SCH (09:01)
[2020-01-27] MEDS: DOXYCYCLINE HYCLATE 100 MG TABLET PO SCH ×2 (09:01→20:33)
[2020-01-27] MEDS: FAMOTIDINE/PF 20 MG/2 ML VIAL IV SCH (09:01)
[2020-01-27 09:33] LABS: ABG BASE EXCESS -9.6 mmol/L (-2.0-3.0); ABG OXYGEN SATURATION 98.2 % (95.0-99.0); ABG PCO2 26 mmHg (35-48)
[2020-01-27] MEDS ORDERED: INSULIN NPH 100 UNIT/ML 3ML SQ SCH ×2 (10:45→21:00)
[2020-01-27] MEDS: HEPARIN SODIUM 5000UNIT/ML 1ML VIAL SQ SCH ×2 (14:28→20:35)
[2020-01-27] MEDS: LACTULOSE 20 GM/30 ML UDCUP NG PRN (17:07)
[2020-01-27] MEDS: INSULIN NPH 100 UNIT/ML 3ML SQ SCH (18:44)
[2020-01-27] MEDS: FENTANYL 2500MCG+NS 250ML 250 ML IV PRN (19:24)
[2020-01-27] MEDS: DOCUSATE NA 100MG/10ML UDCUP NG SCH (20:36)
[2020-01-28] VITALS (47 sets, daily range): BP systolic 87–137; BP diastolic 50–87
[2020-01-28 05:16] LABS: ALBUMIN 1.8 g/dL (3.5-5.0); BILIRUBIN,TOTAL 7.9 mg/dL (0.2-1.0); CRP QUANTITATIVE 34.9 mg/L (0.00-9.0); POTASSIUM 5.4 mmol/L (3.5-5.1); TOTAL PROTEIN, SERUM 5.6 g/dL (6.0-8.3)
[2020-01-28] MEDS: HYDROCORTISONE SOD SUCCINATE 100 MG/2 ML VIAL IV SCH ×4 (05:24→23:32)
[2020-01-28] MEDS: HEPARIN SODIUM 5000UNIT/ML 1ML VIAL SQ SCH ×3 (05:25→20:56)
[2020-01-28] MEDS: INSULIN HUMULIN R 100 UNIT/ML 3ML SQ SCH ×4 (05:26→23:32)
[2020-01-28] MEDS: INSULIN NPH 100 UNIT/ML 3ML SQ SCH ×2 (05:26→17:47)
[2020-01-28 05:27] LABS: CREATININE 14.2 mg/dL (0.5-1.5)
[2020-01-28 05:30] LABS: BASOPHILS % (AUTO) 0.3 % (0.0-5.0); HEMATOCRIT 47.6 % (42-54); LYMPHOCYTES % (AUTO) 1.4 % (21.0-51.0); MEAN CORPUSCULAR HEMOGLOBIN 36.5 pg (27.0-33.0); MEAN CORPUSCULAR VOLUME 98.8 fL (79-99); MONOCYTES % (AUTO) 3.2 % (3.0-13.0); NEUTROPHILS % (AUTO) 93.6 % (40.0-77.0); NUCLEATED RED BLOOD CELLS 0.3 % (0.0-0.19); PLATELET COUNT (AUTO) 80 K/uL (130-400); RED BLOOD CELL COUNT(AUTO) 4.82 MIL/uL (4.50-6.20); RED CELL DISTRIBUTION WIDTH 13.5 % (11.0-15.5); WHITE BLOOD COUNT (AUTO) 13.7 K/uL (4.8-10.8)
[2020-01-28] MEDS: FAMOTIDINE/PF 20 MG/2 ML VIAL IV SCH (08:06)
[2020-01-28] MEDS: DOXYCYCLINE HYCLATE 100 MG TABLET PO SCH ×2 (08:06→20:56)
[2020-01-28] MEDS: MEROPENEM 1 GM VIAL IVP SCH (08:07)
[2020-01-28 08:15] LABS: ABG BASE EXCESS -11.3 mmol/L (-2.0-3.0); ABG HCO3 13.5 mmol/L (21.0-28.0); ABG OXYGEN SATURATION 96.3 % (95.0-99.0); ABG PCO2 28 mmHg (35-48)
[2020-01-28] MEDS: VANCOMYCIN 1.25 GM in SODIUM CHLORIDE 0.9% 250 ML IV SCH (09:00)
--- NOTE | 2020-01-28 09:54 | NUR ---
ABNORMALS CALLED IN TO [facility] LEVEL STILL HIGH. CALLED IN TO PHARMACIST
--- NOTE | 2020-01-28 13:47 | NUR ---
RD FOLLOW UP Pt with Tube feeding intolerance as evidenced by frequent, watery, loose stools. Pt with elevated serum potassium (5.4), BUN (274), Cr (14.2). RECOMMEND CHANGE TUBE FEEDING TO NEPRO INITIATED AT 10MLS PER HOUR TO GOAL OF 20MLS PER HR RECOMMEND FLUSH 100ML Q6HRS. RECOMMEND 1000MG VITAMIN C (IV EQUIVALENT) MEDICALLY FEASIBLE. RD TO CONTINUE TO MONITOR. Addendum: 01/28/20 at [address] RD FOLLOW UP Pt with Tube feeding intolerance as evidenced by frequent, watery, loose stools. Pt with elevated serum potassium (5.4), BUN (274), Cr (14.2). RECOMMEND CHANGE TUBE FEEDING TO NEPRO INITIATED AT 10MLS PER HOUR TO GOAL OF 20MLS PER HR RECOMMEND FLUSH 100ML Q6HRS. RECOMMENDATIONS FAXED TO [facility] RN NOTIFIED. RECOMMEND 1000MG VITAMIN C (IV EQUIVALENT) MEDICALLY FEASIBLE. RD TO CONTINUE TO MONITOR.
--- NOTE | 2020-01-28 15:12 | NUR ---
CONSENT FOR DIALYSIS AND PLACEMENT OF CATHETER OBTAINED FROM DAUGHTER, IS SICK AND INTUBATED IN [place]
[2020-01-28] MEDS: FENTANYL 2500MCG+NS 250ML 250 ML IV PRN (19:32)
[2020-01-28] MEDS: DOCUSATE NA 100MG/10ML UDCUP NG SCH (22:00)
[2020-01-29] VITALS (63 sets, daily range): BP systolic 80–167; BP diastolic 41–109
[2020-01-29 04:34] LABS: ALBUMIN 1.6 g/dL (3.5-5.0); BILIRUBIN,TOTAL 7.1 mg/dL (0.2-1.0); CRP QUANTITATIVE 33.7 mg/L (0.00-9.0); POTASSIUM 5.9 mmol/L (3.5-5.1); TOTAL PROTEIN, SERUM 5.1 g/dL (6.0-8.3)
[2020-01-29] MEDS: HEPARIN SODIUM 5000UNIT/ML 1ML VIAL SQ SCH ×3 (05:13→20:05)
[2020-01-29] MEDS: HYDROCORTISONE SOD SUCCINATE 100 MG/2 ML VIAL IV SCH ×3 (05:18→18:09)
[2020-01-29 05:34] LABS: CREATININE 15.2 mg/dL (0.5-1.5)
[2020-01-29 06:08] LABS: HEMATOCRIT 41.5 % (42-54); MEAN CORPUSCULAR HEMOGLOBIN 36.4 pg (27.0-33.0); MEAN CORPUSCULAR HGB CONC 37.6 g/dL (32.0-36.0); NUCLEATED RED BLOOD CELLS 0.2 % (0.0-0.19); PLATELET COUNT (AUTO) 73 K/uL (130-400); RED BLOOD CELL COUNT(AUTO) 4.28 MIL/uL (4.50-6.20); RED CELL DISTRIBUTION WIDTH 13.5 % (11.0-15.5); WHITE BLOOD COUNT (AUTO) 15.3 K/uL (4.8-10.8)
[2020-01-29] MEDS: INSULIN HUMULIN R 100 UNIT/ML 3ML SQ SCH ×3 (06:23→18:12)
[2020-01-29] MEDS: INSULIN NPH 100 UNIT/ML 3ML SQ SCH ×2 (06:27→18:11)
--- NOTE | 2020-01-29 06:50 | NUR ---
informed of morning labs [id number] creat 15.2 and ammonia
[2020-01-29] MEDS ORDERED: MEROPENEM 1 GM VIAL IVP SCH (09:00)
[2020-01-29] MEDS: FAMOTIDINE/PF 20 MG/2 ML VIAL IV SCH (10:35)
[2020-01-29] MEDS: MEROPENEM 1 GM VIAL IVP SCH (10:35)
[2020-01-29] MEDS: DOXYCYCLINE HYCLATE 100 MG TABLET PO SCH ×2 (10:35→20:03)
[2020-01-29 10:48] LABS: LYMPHOCYTES % (MANUAL) 2 % (22-44); MAN.DIFF COMMENT-IMPRESSION MANUAL DIFFERENTIAL; MONOCYTES % (MANUAL) 2 % (2-9); SEGMENTED NEUTROPHILS % 96 % (40-70)
[2020-01-29 10:49] LABS: PLATELET MORPHOLOGY COMMENT DECREASED
[2020-01-29] MEDS ORDERED: LACTULOSE 20 GM/30 ML UDCUP PO PRN (11:30)
[2020-01-29] MEDS ORDERED: VANCOMYCIN 0.75 GM in SODIUM CHLORIDE 0.9% 250 ML IV SCH (18:00)
[2020-01-29] MEDS: LACTULOSE 20 GM/30 ML UDCUP NG PRN (20:03)
[2020-01-29] MEDS: DOCUSATE NA 100MG/10ML UDCUP NG SCH (20:03)
[2020-01-29] MEDS: FENTANYL 2500MCG+NS 250ML 250 ML IV PRN (20:04)
[2020-01-29] MEDS ORDERED: AMIODARONE HCL 900MG/18ML IV ONE (22:42)
[2020-01-29] MEDS ORDERED: SODIUM CHLORIDE 0.9% 250 ML IV ONE (22:46)
[2020-01-29] MEDS ORDERED: AMIODARONE HCL 900MG/18ML IV STA (22:53)
[2020-01-29] MEDS ORDERED: AMIODARONE HCL 150 MG in DEXTROSE 5%-WATER 100 ML IV SCH (23:00)
[2020-01-29] MEDS ORDERED: AMIODARONE HCL 450 MG in DEXTROSE 5%-WATER 250 ML IV SCH (23:00)
[2020-01-29 23:05] LABS: HEMATOCRIT 44.6 % (42-54); MEAN CORPUSCULAR HEMOGLOBIN 36.2 pg (27.0-33.0); MEAN CORPUSCULAR HGB CONC 37.2 g/dL (32.0-36.0); MEAN CORPUSCULAR VOLUME 97.2 fL (79-99); NUCLEATED RED BLOOD CELLS 0.2 % (0.0-0.19); RED BLOOD CELL COUNT(AUTO) 4.59 MIL/uL (4.50-6.20); RED CELL DISTRIBUTION WIDTH 14.4 % (11.0-15.5); WHITE BLOOD COUNT (AUTO) 17.6 K/uL (4.8-10.8)
[2020-01-29 23:33] LABS: ALBUMIN 1.9 g/dL (3.5-5.0); MAGNESIUM 3.7 mg/dL (1.80-2.40); PHOSPHORUS 17.2 mg/dL (2.5-4.9); POTASSIUM 5.8 mmol/L (3.5-5.1); TOTAL PROTEIN, SERUM 5.8 g/dL (6.0-8.3)
[2020-01-29 23:34] LABS: CREATININE 16.6 mg/dL (0.5-1.5)
[2020-01-30] VITALS (70 sets, daily range): BP systolic 54–152; BP diastolic 21–107
[2020-01-30] MEDS ORDERED: AMIODARONE HCL 50 MG/ML 3 ML VIAL IV STA (00:03)
[2020-01-30] MEDS ORDERED: AMIODARONE HCL 450 MG in DEXTROSE 5%-WATER 250 ML IV SCH ×2 (00:10→05:00)
[2020-01-30 03:29] LABS: ABG BASE EXCESS -16.9 mmol/L (-2.0-3.0); ABG HCO3 10.2 mmol/L (21.0-28.0); ABG OXYGEN SATURATION 95.4 % (95.0-99.0); ABG PCO2 29 mmHg (35-48)
[2020-01-30] MEDS ORDERED: SODIUM BICARB 50MEQ 50ML VIAL ONE (03:34)
[2020-01-30] MEDS ORDERED: MEROPENEM 1 GM VIAL IVP SCH (03:45)
[2020-01-30] MEDS ORDERED: SODIUM BICARB 8.4% 50ML SYRINGE IVP SCH ×2 (04:00→04:30)
[2020-01-30] MEDS ORDERED: DILTIAZEM HCL 5 MG/ML 10 ML VIAL IV SCH (04:00)
[2020-01-30] MEDS ORDERED: AMIODARONE HCL 150 MG in DEXTROSE 5%-WATER 100 ML IV SCH (05:00)
[2020-01-30] MEDS: FENTANYL 2500MCG+NS 250ML 250 ML IV PRN (05:12)
[2020-01-30] MEDS ORDERED: SODIUM CHLORIDE 0.9% 100 ML IV ONE (05:19)
[2020-01-30] MEDS: HYDROCORTISONE SOD SUCCINATE 100 MG/2 ML VIAL IV SCH ×4 (05:46→17:41)
[2020-01-30] MEDS: HEPARIN SODIUM 5000UNIT/ML 1ML VIAL SQ SCH ×2 (05:46→17:44)
--- NOTE | 2020-01-30 06:14 | NUR ---
01/28 2200 HD NURSE ARRIVED TO FLOOR PT BP 88 /54 INCREASED LEVO AND PT WENT INTO [facility] NOTIFIED AND RECEIVED MULTIPLE ORDERS MED ORDERS, LABS AND STORES ASSISTANT CONSULT , ONCE LABS RESULTED I STOPPED MG AND NOTIFIED MD OR ABN LABS AND PT CURRENT CONDITION PT HR RHYTHM GO DOWN AND BACK UP , BP WAS STABLE SO DIALYSIS WAS STARTED BUT DUE TO HD CATH MALFUNCTIONING PT ONLY RECEIVED HALF TREATMENT AND HR CONTINUE TO STAY UP. PT WASN'T RESPONDING TO TITRATING DRIPS . SO NOTIFIED HANSEL TOTH NP AND RECIEVED ORDERS FOR LABS , EKG AND MEDS. PT STARTED TO RESPONDING TO MEDS HR78
[2020-01-30 06:25] LABS: BASOPHILS % (AUTO) 0.2 % (0.0-5.0); HEMATOCRIT 47.2 % (42-54); LYMPHOCYTES % (AUTO) 0.7 % (21.0-51.0); MONOCYTES % (AUTO) 3.3 % (3.0-13.0); NEUTROPHILS % (AUTO) 94.1 % (40.0-77.0); NUCLEATED RED BLOOD CELLS 0.3 % (0.0-0.19); PLATELET COUNT (AUTO) 93 K/uL (130-400); RED BLOOD CELL COUNT(AUTO) 4.72 MIL/uL (4.50-6.20); RED CELL DISTRIBUTION WIDTH 15.1 % (11.0-15.5); WHITE BLOOD COUNT (AUTO) 22.6 K/uL (4.8-10.8)
[2020-01-30] MEDS: INSULIN HUMULIN R 100 UNIT/ML 3ML SQ SCH ×4 (06:36→18:00)
[2020-01-30] MEDS: INSULIN NPH 100 UNIT/ML 3ML SQ SCH ×2 (06:39→18:00)
[2020-01-30 06:49] LABS: BILIRUBIN,TOTAL 10.4 mg/dL (0.2-1.0); CRP QUANTITATIVE 31.8 mg/L (0.00-9.0); MAGNESIUM 4.1 mg/dL (1.80-2.40); TOTAL PROTEIN, SERUM 6.2 g/dL (6.0-8.3)
[2020-01-30 07:04] LABS: POTASSIUM 6.4 mmol/L (3.5-5.1)
[2020-01-30 07:05] LABS: CREATININE 16.7 mg/dL (0.5-1.5)
[2020-01-30] MEDS ORDERED: VANCOMYCIN 1GM+NS 250ML 250 ML IV SCH (09:00)
[2020-01-30] MEDS: DOXYCYCLINE HYCLATE 100 MG TABLET PO SCH (09:58)
[2020-01-30] MEDS: FAMOTIDINE/PF 20 MG/2 ML VIAL IV SCH (09:58)
--- NOTE | 2020-01-30 11:00 | NUR ---
UNABLE TO OBTAIN NIBP CHANGED NIBP SITE AND USED NEW CUFF, BUT STILL UNABLE TO OBTAIN NIBP. DR HASSAN AT BEDSIDE AND ORDERED EMERGENT PLACEMENT OF ARTERIAL LINE. HD ON HOLD, ALL DRIPS PLACED ON HOLD EXCEPT FOR VASOPRESSIN AND LEVOPHED.
[2020-01-30] MEDS ORDERED: SODIUM CHLORIDE 0.9% 500ML 500 ML IV ONE (11:24)
[2020-01-30] MEDS ORDERED: PHARMACY COMMUNICATION MISC SCH (11:45)
--- NOTE | 2020-01-30 12:00 | NUR ---
DR HASSAN PLACING EMERGENT LEFT FEMORAL ARTERIAL LINE ARTERIAL LINE PLACED EMERGENTLY DUE TO NIBP UNREADABLE DESPITE CHANGING CUFF AND SITE.
[2020-01-30] MEDS ORDERED: ALBUMIN (HUMAN) 25% 300 ML IV ONE (12:55)
[2020-01-30] MEDS ORDERED: MICAFUNGIN 100MG+NS 100ML 100 ML IV SCH (13:00)
[2020-01-30] MEDS: NOREPINEPHRINE BITARTRATE 32 MG in SODIUM CHLORIDE 0.9% 250 ML IV SCH ×2 (13:30→16:03)
[2020-01-30] MEDS: VASOPRESSIN 20 UNITS in SODIUM CHLORIDE 0.9% 100 ML IV SCH (15:35)
--- NOTE | 2020-01-30 20:00 | NUR ---
pt still on vent and all cardiac medication but has no pulse , notifed Dr. Sung that wanted me to let in house pronounce. ER MD was informed and pronounce body . Family and donor notified
== END 2020-01-30 20:10 | disposition expired | DRG 870 ==
LOC: EDH 11:52 → EDHIP 17:01 → 2BH 01-20 00:15
PROVIDERS: ADMIT Hospitalist; ATTEND Hospitalist
PROC: 5A1955Z Respiratory Ventilation, Greater than 96 Consecutive Hours (ICD-10-PCS; 2020-01-20)
PROC: 0BH17EZ Insertion of Endotracheal Airway into Trachea, Via Natural or Artificial Opening (ICD-10-PCS; 2020-01-20)
PROC: 30233K1 Transfusion of Nonautologous Frozen Plasma into Peripheral Vein, Percutaneous Approach (ICD-10-PCS; principal; 2020-01-23)
PROC: 5A1D70Z Performance of Urinary Filtration, Intermittent, Less than 6 Hours Per Day (ICD-10-PCS; 2020-01-28)
PROC: 5A1D70Z Performance of Urinary Filtration, Intermittent, Less than 6 Hours Per Day (ICD-10-PCS; 2020-01-29)
PROC: 02HV33Z Insertion of Infusion Device into Superior Vena Cava, Percutaneous Approach (ICD-10-PCS; 2020-01-29)
PROC: 5A1D70Z Performance of Urinary Filtration, Intermittent, Less than 6 Hours Per Day (ICD-10-PCS; 2020-01-30)
PROC: 04HL33Z Insertion of Infusion Device into Left Femoral Artery, Percutaneous Approach (ICD-10-PCS; 2020-01-30)
DX: A41.89 Other specified sepsis (principal); U07.1 COVID-19; J12.89 Other viral pneumonia; J96.01 Acute respiratory failure with hypoxia; K72.00 Acute and subacute hepatic failure without coma; I21.4 Non-ST elevation (NSTEMI) myocardial infarction; G93.41 Metabolic encephalopathy; R65.21 Severe sepsis with septic shock; I50.21 Acute systolic (congestive) heart failure; B49 Unspecified mycosis; E87.2 Acidosis; I13.0 Hypertensive heart and chronic kidney disease with heart failure and stage 1 through stage 4 chronic kidney disease, or unspecified chronic kidney disease; I47.2 Ventricular tachycardia; N17.9 Acute kidney failure, unspecified; Z68.41 Body mass index [BMI] 40.0-44.9, adult; R57.0 Cardiogenic shock; D64.9 Anemia, unspecified; D69.6 Thrombocytopenia, unspecified; D75.1 Secondary polycythemia; E11.22 Type 2 diabetes mellitus with diabetic chronic kidney disease; E66.9 Obesity, unspecified; E78.5 Hyperlipidemia, unspecified; E83.51 Hypocalcemia; E87.5 Hyperkalemia; E87.6 Hypokalemia; F17.200 Nicotine dependence, unspecified, uncomplicated; I25.10 Atherosclerotic heart disease of native coronary artery without angina pectoris; I25.5 Ischemic cardiomyopathy; I48.91 Unspecified atrial fibrillation; N18.9 Chronic kidney disease, unspecified; R13.12 Dysphagia, oropharyngeal phase; R53.81 Other malaise; Z66 Do not resuscitate; I25.2 Old myocardial infarction; Z74.01 Bed confinement status; Z79.84 Long term (current) use of oral hypoglycemic drugs; Z79.02 Long term (current) use of antithrombotics/antiplatelets; Z79.4 Long term (current) use of insulin; Z79.82 Long term (current) use of aspirin; Z79.899 Other long term (current) drug therapy; Z95.810 Presence of automatic (implantable) cardiac defibrillator; Z83.3 Family history of diabetes mellitus; Z82.49 Family history of ischemic heart disease and other diseases of the circulatory system
CPT/HCPCS: 31500; 36415; 36430; 36600; 71045; 71046; 74018; 80048; 80053; 80202; 81001; 82140; 82435; 82550; 82728; 82803; 82947; 82948; 83605; 83615; 83735; 83874; 83880; 84100; 84132; 84145; 84295; 84484; 85018; 85025; 85027; 85378; 85610; 85730; 86140; 86900; 86901; 86927; 87040; 87071; 87205; 90935; 93005; 93306; 93356; 94002; 94003; 94660; 99291; C1752; G0378; J0282; J0456; J0610; J0696; J1250; J1644; J1650; J1720; J1815; J1940; J2060; J2185; J2248; J2704; J2920; J2930; J3010; J3370; J3475; J3490; J7030; J7040; J7050; J7060; J7070; P9017; P9046; U0003